=== PATIENT | male | born 1965 | race Caucasian/White ===

== ENCOUNTER → 2022-11-02 | Outpatient (CLI) | payer OTHER ==
--- NOTE | 2022-11-02 11:34 | US ---
EXAMINATION TYPE: US abdomen complete DATE OF EXAM: 11/02/2022 COMPARISON: NONE CLINICAL HISTORY: R79.89 ELEVATED LFTS,E782 MIXED HYPERLIPIDEMIA. elevated labs, no symptoms TECHNIQUE: Multiple sonographic images of the abdomen are obtained. FINDINGS: EXAM MEASUREMENTS: Liver Length: 16.1 cm Gallbladder Wall: 0.2 cm CBD: 0.5 cm Spleen: 11.6 cm Right Kidney: 12.4 x 4.9 x 5.4 cm Left Kidney: 14.2 x 4.0 x 5.5 cm Pancreas: wnl Liver: wnl Gallbladder: wnl Evidence for sonographic Fox's sign: no CBD: wnl Spleen: wnl Right Kidney: cyst seen, largest = 5.7 x 5.5 x 5.4cm Left Kidney: cyst seen = 1.8 x 1.7 x 1.8cm Upper IVC: wnl Abd Aorta: proximal portion gassed out The liver is homogenous. The intrahepatic portion of the IVC and proximal abdominal aorta are within normal limits. There is no evidence of cholelithiasis. Common bile duct is unremarkable. The visu alized portions of the pancreas are homogenous. The spleen is unremarkable. Kidneys are symmetric a nd free of hydronephrosis. No solid renal lesions are seen. IMPRESSION: Simple cysts noted of the kidneys.
== END | disposition home or self-care (01) ==
LOC: RADUSWWP 10:54
PROVIDERS: ATTEND Family Medicine
DX: N28.1 Cyst of kidney, acquired (principal); E78.2 Mixed hyperlipidemia; R79.89 Other specified abnormal findings of blood chemistry
CPT/HCPCS: 76700